=== PATIENT | male | born 1985 | race Caucasian/White ===

== ENCOUNTER 2020-04-22 11:13 | Emergency (ER) | payer OTHER ==
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
== END 2020-04-22 12:31 | disposition home or self-care (01) ==
LOC: DL.ED 11:13
DX: S16.1XXA Strain of muscle, fascia and tendon at neck level, initial encounter (principal); M54.12 Radiculopathy, cervical region; V43.62XA Car passenger injured in collision with other type car in traffic accident, initial encounter; Y92.410 Unspecified street and highway as the place of occurrence of the external cause
CPT/HCPCS: 72040; 99283; 99284